=== PATIENT | female | born 1970 ===

== ENCOUNTER → 2016-12-10 | Outpatient (CLI) | payer OTHER ==
--- NOTE | 2016-12-10 12:42 | RAD ---
Bilateral knees, 4 views, 12/10/2016: History: Pain and crepitance The knee joint spaces are well preserved. There is minimal degenerative change at the patellofemoral articulations. No fracture or dislocation is identified. No significant joint effusion is seen. IMPRESSION: 1. Minimal degenerative change at the patellofemoral articulations. 2. No acute abnormality is detected.
== END | disposition home or self-care (01) ==
LOC: DXRADRC 11:33
PROVIDERS: ATTEND Physician Assistant Medical
DX: M17.0 Bilateral primary osteoarthritis of knee (principal)
CPT/HCPCS: 73560